=== PATIENT | male | born 1970 | race Caucasian/White ===

== ENCOUNTER 2018-04-23 02:30 | Emergency (ER) | payer BC, OTHER ==
[2018-04-23] MEDS ORDERED: Bacitracin/Neomycin/Polymyxin B Oint 0.9 GM U/D Packet TOP ONE (03:01)
[2018-04-23] MEDS ORDERED: Diphtheria,Pertussis(Acell),Tetanus Vaccine 0.5 ML SDV IM ONE (03:01)
--- NOTE | 2018-04-23 03:03 | EDM.PDOC ---
ED HPI GENERAL MEDICAL PROBLEM - General Chief Complaint: Laceration Stated Complaint: laceration Time Seen by Provider: 04/23/18 02:50 Source of Information: Reports: Patient. Denies: Old Records (No [facility] records available) History Limitations: Reports: No Limitations - History of Present Illness INITIAL COMMENTS - FREE TEXT/NARRATIVE: The patient was brought to the emergency room via transport vehicle from [facility] for evaluation of a Workmen's Compensation injury, which occurred at about 2 AM this morning. The patient accidentally caught the second finger of his left hand on a track with no history of foreign body, paresthesias, or other complaints or injuries. He has not injured this digit in the past. The patient is right-handed. His last tetanus booster was more than 10 years ago. The patient denies any chest pain/pressure, heart flutter, dizziness, orthostasis, orthopnea, diaphoresis, paresthesias, recent decreased exercise tolerance, or any other anginal-type symptoms. No recent history of abdominal pain, heartburn , nausea, diarrhea, melena, gross hematochezia, or any food intolerance, including fatty foods, etc.. The patient also denies any recent fever, cough, wheezing, dyspnea, etc.. Onset: Today, Sudden Onset Date: 04/23/18 Onset Time: 02:00 Duration: Constant Location: Reports: Upper Extremity, Left. Denies: Head, Face, Neck, Chest, Abdomen, Back, Pelvis, Upper Extremity, Right, Radiates to Quality: Reports: Same as Previous Episode, Throbbing Severity: Moderate Improves with: Reports: Rest Worsens with: Reports: Movement Context: Reports: Trauma (As above) Associated Symptoms: Reports: No Other Symptoms. Denies: Confusion, Chest Pain , Cough, Diaphoresis, Fever/Chills, Headaches, Loss of Appetite, Malaise, Nausea /Vomiting, Rash, Seizure, Shortness of Breath, Syncope, Weakness Treatments TREE CUTTER: Reports: Dressing(s) (With laceration site also rinsed with tapwater) Left 2nd digit Pain Score (Numeric/FACES): 5 - Related Data Allergies Allergy/AdvReac Type Severity Reaction Status Date / Time No Known Allergies Allergy Verified 04/23/18 02:33 Home Meds: Home Meds Aspirin [Earlene Chewable Aspirin] 81 mg PO DAILY 04/23/18 [History] Doxepin [SINEquan] 1 tab PO BID 04/23/18 [History] Lisinopril 1 tab PO DAILY 04/23/18 [History] Zolpidem Tartrate 1 tab PO BEDTIME PRN 04/23/18 [History] Past Medical History HEENT History: Reports: Impaired Vision, Other (See Below). Denies: Allergic Rhinitis, Cataract, Glaucoma, Hard of Hearing, Macular Degeneration Other HEENT History: Patient wears glasses. Cardiovascular History: Reports: High Cholesterol, Hypertension, Other (See Below). Denies: Afib, Aneurysm, Arrhythmia, Blood Clots/VTE/DVT, CAD, Heart Failure, Heart Murmur, NH, Syncope Other Cardiovascular History: Hyperlipidemiadiet controlled Musculoskeletal History: Reports: Arthritis, Back Pain, Chronic, Fracture, Neck Pain, Chronic, Osteoarthritis, Other (See Below). Denies: Gout, RA, SLE Other Musculoskeletal History: Leg fracture at age 4site and side unknown Psychiatric History: Reports: Other (See Below). Denies: Abuse, Victim of, ADD , Addiction, Anxiety, Depression, Hallucinations, Psych Hospitalization(s), PTSD , Suicide Attempt, Suicidal Ideation Other Psychiatric History: Chronic insomnia Dermatologic History: Reports: Urticaria. Denies: Eczema, Psoriasis Social & Family History - Tobacco Use Smoking Status *Q: Former Smoker Tobacco Use Within Last Twelve Months: No Years of Tobacco use: 9 Packs/Tins Daily: 0.5 Packs/Tins Daily Comment: Chewing tobacco use between ages 15 and 34. Used Tobacco, but Quit: No Smoking Cessation Information Provided To Patient: No Second Hand Smoke Exposure: No Second Hand Smoke Education Provided: No - Living Situation & Occupation Living situation: Reports: (2018 with one child and stepdaughter. and patient previously in an extended significant other relationship.) Occupation: Employed ([employer]) ED ROS GENERAL - Review of Systems Review Of Systems: ROS reveals no pertinent complaints other than HPI. ED EXAM, SKIN/RASH Exam: See Below Exam Limited By: No Limitations General Appearance: Alert, WD/WN, No Apparent Distress Head: Atraumatic, Normocephalic. No: Facial Swelling, Facial Tenderness, Sinus Tenderness Neck: Normal Inspection, Supple, Non-Tender, Full Range of Motion. No: Lymphadenopathy (L), Lymphadenopathy (R), Thyromegaly Respiratory/Chest: No Respiratory Distress, Lungs Clear, Normal Breath Sounds, No Accessory Muscle Use, Chest Non-Tender. No: Pleural Rub, Retractions Cardiovascular: Normal Peripheral Pulses, Regular Rate, Rhythm (Resolved tachycardia at time of exam), No Edema, No Gallop, No JVD, No Murmur, No Rub. No: Gallop/S3, Gallop/S4, Friction Rub Peripheral Pulses: 2+: Radial (L), Radial (R) GI/Abdominal: Normal Bowel Sounds, Soft, Non-Tender, No Organomegaly, No Distention, No Abnormal Bruit, No Mass, Pelvis Stable. No: Guarding (Male) Exam: Deferred Rectal (Males) Exam: Deferred Back Exam: Normal Inspection, Full Range of Motion. No: CVA Tenderness (L), CVA Tenderness (R), Muscle Spasm Extremities: Normal Range of Motion, No Pedal Edema, Normal Capillary Refill, Other (1 Centimeter in length superficial laceration over the proximal aspect of the extensor surface of digit #2 of the left hand with some mild localized swelling and tenderness but no foreign body or significant nerve or vascular injury; no deformity, crepitation, etc.). No: Joint Swelling, Davi's Sign Neurological: Alert, Oriented, CN II-XII Intact, Normal Cognition, Normal Gait, No Motor/Sensory Deficits Psychiatric: Normal Affect, Normal Mood Skin: Wound/Incision (As above) Location, Skin: Upper Extremity, Left Characteristics: Linear, Other (As above) Lymphatic: No Adenopathy ED SKIN PROCEDURES - Laceration/Wound Repair Left Proximal Dorsal Digit - 2nd (Index) Lac/Wound length In cm: 1.0 Appearance: Superficial, Linear, Clean Distal NVT: Neuro & Vascular Intact, No Tendon Injury Anesthetic Type: Local Local Anesthesia - Lidocaine (Xylocaine): 1% Plain Local Anesthetic Volume: 4cc Skin Prep: Providone-Iodine (Betadine) Saline Irrigation (cc's): 0 Exploration/Debridement/Repair: Wound Explored, In a Bloodless Field, Explored to Base, No Foreign Material Found Closed with: Sutures Suture Size: 4-0 # of Sutures: 4 Suture Type: Nylon, Interrupted, Simple Course - Vital Signs Last Recorded V/S: Last Vital Signs Temp 37.1 C 04/23/18 02:35 Pulse 110 H 04/23/18 02:35 Resp 20 04/23/18 02:35 BP 153/96 H 04/23/18 02:35 Pulse Ox 97 04/23/18 02:35 Vital Signs - 24 hr 04/23/18 02:35 Temperature [ 37.1 C Temporal] Pulse, 110 H Peripheral [ Brachial] Respiratory 20 Rate Blood Pressure 153/96 H [Upper Arm] O2 Sat by Pulse 97 Oximetry - Orders/Labs/Meds Orders: Active Orders 24 hr Category Date Time Status Vaccines to be Administered [RC] PER UNIT ROUTINE Care 04/23/18 03:01 Active Fingers Second Digit Lt F1 [CR] Stat Exams 04/23/18 03:01 Ordered Obtain Past Medical Record [OM.PC] Routine Oth 04/23/18 03:01 Active Labs: None Meds: Medications Discontinued Medications Generic Name Dose Route Start Last Admin Trade Name Freq PRN Reason Stop Dose Admin Diphtheria/Tetanus/Acell Pertussis 0.5 ml 04/23/18 03:01 04/23/18 03:12 Adacel IM 04/23/18 03:02 0.5 ml .ONCE ONE Administration Lidocaine HCl 5 ml 04/23/18 03:01 04/23/18 03:12 Xylocaine-Mpf 1% INJECT 04/23/18 03:02 5 ml ONETIME ONE Administration Neomycin/Polymyxin/Bacitracin 1 each 04/23/18 03:01 04/23/18 03:14 Triple Antibiotic Oint TOP 04/23/18 03:02 1 each ONETIME ONE Administration - Radiology Interpretation Free Text/Narrative:: X-rays of digit #2 of the left hand, complete, shows no evidence of fracture, foreign body, dislocation, etc. Departure - Departure Time of Disposition: 03:40 Disposition: Home, Self-Care 01 Condition: Good Clinical Impression: Laceration, Contusion, Hypertension, Osteoarthritis - Discharge Information *PRESCRIPTION DRUG MONITORING PROGRAM REVIEWED*: Not Applicable *COPY OF PRESCRIPTION DRUG MONITORING REPORT IN PATIENT [place]: Not Applicable Instructions: Laceration Care, Adult, [id number], Stitches, [place], or Adhesive Wound Closure, [id number] Referrals: PCP,Not In Area [Primary Care Provider] - Forms: ED Department Discharge Additional Instructions: 1. Followup with your regular provider in 10-14 days as directed for suture removal. Bring these discharge instructions with you to that visit. 2. Antibacterial soap wash/soak with subsequent antibacterial dressing such as Neosporin, etc. as directed 2 times per day until the wound or laceration site completely heals. Keep the area clean and dry with activity restrictions as discussed. Never use hydroperoxide for wound care. 3. Tylenol 650 mg by mouth every 4 hours and/or OTC ibuprofen 2-3 tabs by mouth every 6 hours with food as directed./needed. You may stagger these medications for 48-72 hours only, which essentially means that you are receiving a pain medication about every 2 hours. 4. Work excuse- See Form 5. Advance activity as tolerated/discussed 6. Ice packs as needed/discuss 7. Immediately after this visit verify that your cellular telephone's voicemail has been activated and is empty. Also verify that your home telephone 's answering machine is operating properly and has space to receive messages. Note that it is sometimes necessary for us to be able to contact you at a later date to discuss your medical care. 8. Please remember that we are ALWAYS here for you and want to answer any questions you may have. Feel free to call the hospital any time and we call you back [place]. 9. Continue to observe your blood pressures closely through your regular providers, including at time of follow-up as above - Problem List & Annotations (1) Laceration SNOMED Code(s): 888546126 Code(s): [id number] - Status: Acute Priority: High Onset Date: 04/23/18 Annotation/Comment:: Excellent results with laceration repair as above. DTaP given. Workmen's Compensation and [place] work excuse forms were completed. Wound care, activity restrictions, etc. discussed. (2) Contusion SNOMED Code(s): 053142673 Code(s): T14.8XXA - OTHER INJURY OF UNSPECIFIED BODY REGION, INITIAL ENCOUNTER Status: Acute Priority: High Onset Date: 04/23/18 Annotation/ Comment:: Negative x-rays as above. Minor contusion of the second finger of his left hand. Activity restrictions discussed. No finger splint needed. Qualifiers: Encounter type: initial encounter Contusion area: finger Finger: index finger Damage to nail status: with damage Laterality: left Qualified Code( s): S60.122A - Contusion of left index finger with damage to nail, initial encounter (3) Hypertension SNOMED Code(s): 98670895 Code(s): I10 - ESSENTIAL (PRIMARY) HYPERTENSION Status: Chronic Priority : Medium Annotation/Comment:: His blood pressures have been under moderate control recently by his history. Close follow-up by regular provider as per discharge instructions. Medication adjustments may be needed. Qualifiers: Hypertension type: essential hypertension Qualified Code(s): I10 - Essential (primary) hypertension (4) Osteoarthritis SNOMED Code(s): 566999386 Code(s): M19.90 - UNSPECIFIED OSTEOARTHRITIS, UNSPECIFIED SITE Status: Chronic Priority: Medium Annotation/Comment:: Stable by history with patient not normally taking medications. He does go to a chiropractor. Qualifiers: Osteoarthritis location: multiple joints Osteoarthritis type: primary Qualified Code(s): M15.0 - Primary generalized (osteo)arthritis - Problem List Review Problem List Initiated/Reviewed/Updated: Yes - My Orders Last 24 Hours: My Active Orders 04/23/18 03:01 Vaccines to be Administered [RC] PER UNIT ROUTINE Fingers Second Digit Lt F1 [CR] Stat Obtain Past Medical Record [OM.PC] Routine - Assessment/Plan Last 24 Hours: My Active Orders 04/23/18 03:01 Vaccines to be Administered [RC] PER UNIT ROUTINE Fingers Second Digit Lt F1 [CR] Stat Obtain Past Medical Record [OM.PC] Routine Assessment:: As above Plan: As above. Extensive precautions were given to the patient, who is in agreement with the treatment plan. See Patient Instructions for further treatment and plan.
== END 2018-04-23 03:40 | disposition home or self-care (01) ==
LOC: LL.ED 02:30
DX: S61.211A Laceration without foreign body of left index finger without damage to nail, initial encounter (principal); I10 Essential (primary) hypertension; M19.90 Unspecified osteoarthritis, unspecified site; Z23 Encounter for immunization; W23.0XXA Caught, crushed, jammed, or pinched between moving objects, initial encounter; Y99.0 Civilian activity done for income or pay; Z87.891 Personal history of nicotine dependence
CPT/HCPCS: 12001; 73140-F1; 90471; 90715; 99283; J2001